=== PATIENT | male | born 1955 | race Caucasian/White ===

== ENCOUNTER → 2023-05-13 12:51 | Outpatient (REF) | payer MEDICARE, OTHER, SELFPAY | LOC: HWRAD 12:51 | PROVIDERS: ATTENDING PHYSICIAN Orthopaedic Surgery Hand Surgery; FAMILY PHYSICIAN Internal Medicine; REFERRING PHYSICIAN Orthopaedic Surgery | DX: M25.512 Pain in left shoulder (principal); Z98.1 Arthrodesis status; M54.16 Radiculopathy, lumbar region | CPT/HCPCS: 72131; 73200 ==

== ENCOUNTER → 2024-07-16 08:33 | Outpatient (REF) | payer MEDICARE, OTHER, SELFPAY ==
[2024-07-16 09:18] LABS: % Basophils 0.8 % (0-2); % Eosinophils 3.5 % (0-6); % Immature Granulocytes 0.2 % (0-0.5); % Lymphocytes 43.2 % (20.5-51.1); % Monocytes 7.3 % (1.7-9.3); Absolute Eosinophils 0.2 10^3/uL (0-0.7); Absolute Lymphocytes 2.1 10^3/uL (1.2-3.4); Absolute Monocytes 0.4 10^3/uL (0.1-0.6); Absolute Neutrophils 2.2 10^3/uL (1.4-6.5); Hematocrit 43.3 % (39.0-52.0); Hemoglobin 14.9 g/dL (13.0-18.0); Mean Corp Hgb Conc. 34.4 g/dL (33.0-37.0); Mean Corpuscular Hgb 31.7 pg (27.0-31.0); Mean Corpuscular Volume 92.1 fL (80.0-94.0); Mean Platelet Volume 10.2 fL (7.4-10.4); Nucleated Red Blood Cells % 0 % (-); Platelet Count 202 10^3/uL (130-400); White Blood Cell Count 4.8 10^3/uL (4.8-10.8)
[2024-07-16 09:56] LABS: Urine Albumin 2+ (Neg - Trace); Urine Bilirubin Negative (Negative); Urine Character Clear (Clear); Urine Color Yellow; Urine Glucose Negative (Negative); Urine Ketone Negative (Negative); Urine Leukocyte Negative (Negative); Urine Nitrite Negative (Negative); Urine Occult Blood Negative (Negative); Urine Specific Gravity 1.015 (<1.030); Urine Urobilinogen 1+ (Neg - 1+)
[2024-07-16 10:03] LABS: ALT (SGPT) 16 U/L (0-50); AST (SGOT) 21 U/L (17-59); Albumin 4.4 g/dl (3.5-5.0); Alkaline Phosphatase 57 U/L (38-126); Blood Urea Nitrogen 13 mg/dl (9-20); Calcium 9.4 mg/dl (8.4-10.2); Carbon Dioxide 29 mmol/L (22-30); Chloride 109 mmol/L (98-107); Glucose 98 mg/dl (70-99); HDL Cholesterol 43 mg/dl; LDL Cholesterol, Calculated 149 mg/dl; Potassium 4.6 mmol/L (3.5-5.1); Sodium 141 mmol/L (135-145); Total Bilirubin 0.9 mg/dl (0.2-1.3); Total Cholesterol 210 mg/dl (50-199); Total Protein 6.9 g/dl (6.3-8.2); Triglyceride 91 mg/dl (10-149); Very Low Density Lipoprotein 18 mg/dl (0-30); eGFR > 60.00
[2024-07-16 10:06] LABS: Erythrocyte Sed Rate 4 mm/hour (0-20)
[2024-07-16 10:07] LABS: C-Reactive Protein < 5.00 mg/L (0.0-10.00)
[2024-07-16 10:24] LABS: FSH 2.3 mIU/ml (1.55-9.74); Luteinizing Hormone 2.12 mIU/ml (1.24-7.80)
[2024-07-16 10:29] LABS: Urine Amorphous Seen; Urine Squamous Cell 0-2 /LPF (Few)
[2024-07-16 10:31] LABS: Urine Red Blood Cell 0-2 /HPF (0-2); Urine White Cell 0-2 /HPF (0-5)
[2024-07-16 10:38] LABS: PSA, Total - Diagnostic 2.15 ng/ml (0.0-4.0); PSA, Total - Screen 2.15 ng/ml (0.0-4.0); TSH 1.43 uIU/ml (0.47-4.68)
[2024-07-16 10:44] LABS: Ferritin 75.8 ng/ml (17.9-464.0)
[2024-07-16 10:50] LABS: Free T4 0.86 ng/dl (0.78-2.19)
[2024-07-16 17:34] LABS: HIV Combo Negative (Negative)
[2024-07-17 21:41] LABS: Adrenocorticotropic Hormone 50.3 pg/mL (7.2-63.3)
[2024-07-18 03:20] LABS: IGF-1 Z Score Calculation -0.1; Insulin-like Growth Factor I 103 ng/mL (31-243)
[2024-07-18 14:57] LABS: Quantiferon Mitogen minus NIL 9.97 IU/mL; Quantiferon NIL 0.03 IU/mL; Quantiferon Plus TB2 minus NIL 0.01 IU/mL (<=0.34); Quantiferon TB Gold Plus Negative (Negative)
[2024-07-18 18:14] LABS: % Free Testosterone 1.2 % (1.6-2.9); Free Testosterone 41 pg/mL (47-244); Sex Hormone Binding Globulin 64 nmol/L (19-76); Total Testosterone 343 ng/dL (300-720)
== END ==
LOC: RAD 08:33
PROVIDERS: ATTENDING PHYSICIAN Hospitalist; REFERRING PHYSICIAN Internal Medicine
DX: R61 Generalized hyperhidrosis (principal); R53.83 Other fatigue; R63.4 Abnormal weight loss; Z11.4 Encounter for screening for human immunodeficiency virus [HIV]; Z00.00 Encounter for general adult medical examination without abnormal findings; Z12.5 Encounter for screening for malignant neoplasm of prostate; E78.5 Hyperlipidemia, unspecified
CPT/HCPCS: 36415; 71046; 80053; 80061; 81003; 81015; 82024; 82533; 82728; 83001; 83002; 84153; 84270; 84305; 84402; 84403; 84439; 84443; 85025; 85652; 86140; 86480; 87389; G0103

== ENCOUNTER → 2024-07-22 09:54 | Outpatient (REF) | payer MEDICARE, OTHER, SELFPAY | LOC: HWRAD 09:54 | PROVIDERS: ATTENDING PHYSICIAN Hospitalist | DX: R07.0 Pain in throat (principal) | CPT/HCPCS: 76536 ==

== ENCOUNTER → 2024-08-05 11:32 | Outpatient (REF) | payer MEDICARE, OTHER, SELFPAY | LOC: RAD 11:32 | PROVIDERS: ATTENDING PHYSICIAN Hospitalist | DX: R61 Generalized hyperhidrosis (principal) | CPT/HCPCS: 71250; 74177; Q9967 ==

== ENCOUNTER 2025-02-02 07:33 | Outpatient (RCR) | payer MEDICARE, OTHER, SELFPAY ==
[2025-02-02 07:52] VITALS: BP 140/70
[2025-02-02 08:15] LABS: Hematocrit 38.9 % (39.0-52.0); Hemoglobin 12.9 g/dL (13.0-18.0); Mean Corp Hgb Conc. 33.2 g/dL (33.0-37.0); Mean Corpuscular Volume 93.7 fL (80.0-94.0); Platelet Count 197 10^3/uL (130-400); Red Cell Dist. Width 12.6 % (11.5-14.5)
[2025-02-02] MEDS: CORTROSYN 1 MG IV (08:28)
[2025-02-02 09:15] LABS: ALT (SGPT) 17 U/L (0-50); AST (SGOT) 22 U/L (17-59); Albumin 3.7 g/dl (3.5-5.0); Alkaline Phosphatase 59 U/L (38-126); Blood Urea Nitrogen 15 mg/dl (9-20); Calcium 8.4 mg/dl (8.4-10.2); Carbon Dioxide 25 mmol/L (22-30); Chloride 106 mmol/L (98-107); Glucose 90 mg/dl (70-99); Potassium 4.0 mmol/L (3.5-5.1); Sodium 136 mmol/L (135-145); Total Protein 6.3 g/dl (6.3-8.2); eGFR > 60.00
[2025-02-02 09:45] LABS: TSH 1.86 uIU/ml (0.47-4.68)
[2025-02-02 09:47] LABS: ACTH Stim Cortisol 0 Min 10.4 ug/dl
[2025-02-02 10:28] LABS: ACTH Stim Cortisol 30 Min 16.8 ug/dl
[2025-02-02 10:38] LABS: ACTH Stim Cortisol 60 Min 19.1 ug/dl
== END 2025-02-04 09:06 | disposition home or self-care (01) ==
LOC: OID 07:33
PROVIDERS: ATTENDING PHYSICIAN Internal Medicine Endocrinology, Diabetes & Metabolism; FAMILY PHYSICIAN Hospitalist
DX: E27.40 Unspecified adrenocortical insufficiency (principal)
CPT/HCPCS: 80053; 82533; 84146; 84270; 84402; 84403; 84439; 84443; 85025; 96374